=== PATIENT | female | born 1935 | race Caucasian/White ===

== ENCOUNTER 2017-03-04 08:29 | Emergency (ER) | payer MEDICARE, MEDICAID ==
[~2017-03-04] VITALS: Ht 160 cm; Wt 65.5 kg
[~2017-03-04 08:29] MED LIST changes: -DILT30TA PO; -DULE100A INH; -MULTTAB67 PO; -PLAV75TA29 PO; -PREV30CA11 PO
[2017-03-04 08:34] VITALS: BP 137/67; PULSE 80; RESP 16; TEMP 98.4; O2SAT 94
[2017-03-04] MEDS ORDERED: DILT30TA PO (08:40)
[2017-03-04] MEDS ORDERED: PREV30CA11 PO (08:40)
[2017-03-04] MEDS ORDERED: MULTTAB67 PO (08:40)
[2017-03-04] MEDS ORDERED: DULE100A INH (08:40)
[2017-03-04] MEDS ORDERED: VENTAER INH (08:40)
[2017-03-04] MEDS ORDERED: PLAV75TA29 PO (08:40)
[2017-03-04 08:43] VITALS: O2SAT 96
--- NOTE | 2017-03-04 08:43 | PD ---
HPI Chief Complaint: Syncope/Near-Syncope Time Seen by Provider: 08:32 Travel History International Travel<30 days: No Contact w/Intl Traveler<30days: No Traveled to known affect area: No History of Present Illness HPI The patient is a 81-year-old female who presents emergency department after syncopal episode. The patient states she was have a pulmonary function test performed earlier today, received Ventolin, and then felt lightheaded, dizzy, felt like she is going to pass out. The patient does believe she had a syncopal episode with mild nausea, vomiting, or symptoms significantly improved. The patient is now asymptomatic. The patient does have a history of syncope, states approximately one year ago she underwent cardiac evaluation with echocardiogram and a loop recorder. The patient's loop recorder when off one time and she was noted to have a tachyarrhythmia, was evaluated by her learning and development consultant, Dr. Gutierrez. The patient states she had no chest pain or palpitations earlier today, is currently asymptomatic. The patient also states in October and November she was evaluated for near syncopal symptoms and chest pain, underwent a nuclear medicine myocardial perfusion scan and was told that she has "the heart of a 21-year-old ". The patient is followed by her primary physician, Dr. Jonny Ghotra, her learning and development consultant, Dr. Gutierrez, and her chucking and sawing machine operator, Dr. Fuentes. The patient denies any current chest pain, shortness of breath, states her nausea/vomiting has resolved. PFSH Past Medical History Heart Rhythm Problems: Yes (TACH) Cancer: No Cardiovascular Problems: Yes Cerebrovascular Accident: Yes (10/2016) Diabetes: No Diminished Hearing: No GERD: Yes Hepatitis: No Hiatal Hernia: No Medical other: Yes (GERD) Respiratory: Yes (ASTHMA) Thyroid Disease: No Triglycerides - High: Yes Tetanus Vaccination: > 5 Years Influenza Vaccination: Yes ?: Not Past Surgical History Endocrine Surgery: Yes (PARATHYROID SURGERY) Eye Surgery: Yes (LEFT CATARACT SURGERY) Gynecologic Surgery: Yes (SANDHYA1983) Hysterectomy: Yes Oral Surgery: Yes (SINUS SURGERY) Pacemaker: No Other Surgery: Yes Social History Alcohol Use: No Tobacco Use: No Substance Use: No Allergies-Medications (Allergen,Severity, Reaction): Coded Allergies: Augmentin (Unverified Allergy, Severe, 03/04/17) Cipro (Unverified Allergy, Severe, 03/04/17) Uncoded Allergies: STATIN (Allergy, Severe, 03/05/12) Reported Meds & Prescriptions Reported Meds & Active Scripts Active Reported Dulera 120 Act Inh (Mometasone-Formoterol 120 Act Inh) 100-5 Mcg/Act Inh 2 Puff INH BID Multiple Vitamin 1 Tab 1 Tab PO DAILY Prevacid (Lansoprazole) 30 Mg Capdr 30 Mg PO HS Plavix (Clopidogrel Bisulfate) 75 Mg Tab 75 Mg PO DAILY Diltiazem (Diltiazem HCl) 30 Mg Tab Unknown Dose PO DIRECTED Ventolin Hfa 18 GM Inh (Albuterol Sulfate) 90 Mcg/Act Aer 1 Puff INH Q4H PRN Review of Systems Except as stated in HPI: all other systems reviewed are Neg General / Constitutional: Positive: Chills, No: Fever HENT: Positive: Lightheadedness Cardiovascular: Positive: Diaphoresis, Syncope, No: Chest Pain or Discomfort, Palpitations, Irregular Rhythm, Tachycardia Respiratory: No: Shortness of Breath Gastrointestinal: Positive: Nausea, Vomiting Neurologic: Positive: Dizziness, Syncope, No: Focal Abnormalities, Headache Physical Exam Narrative GENERAL: Awake, alert, very pleasant 81-year-old female who appears her stated age and is in no acute respiratory distress. SKIN: Focused skin assessment warm/dry. HEAD: Atraumatic. Normocephalic. EYES: Pupils equal and round. No scleral icterus. No injection or drainage. ENT: No nasal bleeding or discharge. Mucous membranes pink and moist. NECK: Trachea midline. No JVD. CARDIOVASCULAR: Regular rate and rhythm. No murmur appreciated. Heart rate in the 80s. RESPIRATORY: No accessory muscle use. Clear to auscultation. Breath sounds equal bilaterally. No wheezing noted. GASTROINTESTINAL: Abdomen soft, non-tender, nondistended. No rebound tenderness. MUSCULOSKELETAL: No obvious deformities. No clubbing. No cyanosis. No edema. NEUROLOGICAL: Awake and alert. No obvious cranial nerve deficits. Motor grossly within normal limits. Normal speech. PSYCHIATRIC: Appropriate mood and affect; insight and judgment normal. Data Data Last Documented VS Vital Signs Date Time Temp Pulse Resp B/P Pulse Ox O2 Delivery O2 Flow Rate FiO2 03/04/17 09:46 79 16 118/57 100 Room Air 03/04/17 08:53 2 03/04/17 08:34 98.4 Orders Complete Blood Count With Diff (03/04/17 08:38) Comprehensive Metabolic Panel (03/04/17 08:38) Magnesium (Mg) (03/04/17 08:38) Ecg Monitoring (03/04/17 08:38) Iv Access Insert/Monitor (03/04/17 08:38) Oximetry (03/04/17 08:38) Sodium Chloride 0.9% Flush (Ns Flush) (03/04/17 08:45) Orthostatic Vital Signs (03/04/17 08:38) Sodium Chlorid 0.9% 500 Ml Inj (Ns 500 M (03/04/17 08:45) Electrocardiogram (03/04/17 08:30) Labs Laboratory Tests Test 03/04/17 08:40 White Blood Count 23.5 TH/MM3 Red Blood Count 4.32 MIL/MM3 Hemoglobin 11.9 GM/DL Hematocrit 35.7 % Mean Corpuscular Volume 82.6 FL Mean Corpuscular Hemoglobin 27.5 PG Mean Corpuscular Hemoglobin 33.3 % Concent Red Cell Distribution Width 17.1 % Platelet Count 481 TH/MM3 Mean Platelet Volume 8.3 FL CBC Comment AUTO DIFF Differential Total Cells 100 Counted Neutrophils % (Manual) 58 % Lymphocytes % 30 % Monocytes % 9 % Eosinophils % 2 % Basophils % 1 % Neutrophils # (Manual) 13.6 TH/MM3 Differential Comment FINAL DIFF MANUAL Platelet Estimate HIGH Platelet Morphology Comment NORMAL Red Cell Morphology Comment NORMAL Sodium Level 142 MEQ/L Potassium Level 3.9 MEQ/L Chloride Level 104 MEQ/L Carbon Dioxide Level 29.1 MEQ/L Anion Gap 9 MEQ/L Blood Urea Nitrogen 22 MG/DL Creatinine 0.66 MG/DL Estimat Glomerular Filtration 86 ML/MIN Rate Random Glucose 125 MG/DL Calcium Level 9.2 MG/DL Magnesium Level 1.9 MG/DL Total Bilirubin 0.3 MG/DL Aspartate Amino Transf 23 U/L (AST/SGOT) Alanine Aminotransferase 34 U/L (ALT/SGPT) Alkaline Phosphatase 93 U/L Total Protein 7.3 GM/DL Albumin 3.4 GM/DL MDM Medical Decision Making Medical Screen Exam Complete: Yes Emergency Medical Condition: Yes Medical Record Reviewed: Yes Interpretation(s) EKG reveals normal sinus rhythm with a rate of 77. LVH by criteria. Laboratory Tests Test 03/04/17 08:40 White Blood Count 23.5 TH/MM3 Red Blood Count 4.32 MIL/MM3 Hemoglobin 11.9 GM/DL Hematocrit 35.7 % Mean Corpuscular Volume 82.6 FL Mean Corpuscular Hemoglobin 27.5 PG Mean Corpuscular Hemoglobin 33.3 % Concent Red Cell Distribution Width 17.1 % Platelet Count 481 TH/MM3 Mean Platelet Volume 8.3 FL CBC Comment AUTO DIFF Sodium Level 142 MEQ/L Potassium Level 3.9 MEQ/L Chloride Level 104 MEQ/L Carbon Dioxide Level 29.1 MEQ/L Anion Gap 9 MEQ/L Blood Urea Nitrogen 22 MG/DL Creatinine 0.66 MG/DL Estimat Glomerular Filtration 86 ML/MIN Rate Random Glucose 125 MG/DL Calcium Level 9.2 MG/DL Magnesium Level 1.9 MG/DL Total Bilirubin 0.3 MG/DL Aspartate Amino Transf 23 U/L (AST/SGOT) Alanine Aminotransferase 34 U/L (ALT/SGPT) Alkaline Phosphatase 93 U/L Total Protein 7.3 GM/DL Albumin 3.4 GM/DL Differential Diagnosis Differential diagnoses includes syncope, near-syncope, medication side effect, vasovagal syncope, cardiogenic syncope, arrhythmia, dehydration, orthostatic hypotension. Narrative Course IV was established, labs were drawn and sent, and the patient was placed on cardiac telemetry monitoring and continuous pulse oximetry monitoring. EKG was ordered and interpreted. The patient states she had a workup for syncope one year ago which included an echocardiogram and a Holter monitor. She then underwent evaluation for chest pain and had a nuclear medicine myocardial perfusion scan which was unremarkable. The patient has been followed by her learning and development consultant, she is not asymptomatic. Orthostatic vital signs were obtained and the patient was administered 500 cc normal saline bolus. The patient is currently nonfocal on exam, alert and oriented 4, no evidence of trauma to the head, I do not believe CT the brain is warranted. The patient's white count is elevated 23.5, platelets are elevated above 450, BUN is elevated at 22, creatinine 0.66, this may be a combination of marginal incision from syncope and mild dehydration. Orthostatic vital signs are unremarkable. The patient's cardiac telemetry monitoring revealed a normal sinus rhythm with no evidence of arrhythmia or ectopy. The patient was reevaluated, her symptoms have significantly improved. The patient has an appointment tomorrow with her primary physician, Dr. Lord. She'll be discharged home with family, will be provided a copy of her labs, will need repeat laboratory evaluation to ensure white count resolves. Diagnosis Primary Impression: Syncope Qualified Code: [id number] - Syncope, unspecified syncope type Patient Instructions: General Instructions Additional Instructions: Please provide the patient copy of her labs at discharge. Follow-up with your primary physician, Dr. Lemon tomorrow as scheduled. Return if symptoms worsen or progress. Med/Other Pt SpecificInfo: No Change to Meds Disposition: 01 DISCHARGE HOME Condition: Stable Robe Topete MD Mar 04, 2017 08:43
[2017-03-04] MEDS ORDERED: SODIUM CHLORIDE 0.9% FLUSH 10 ML FLUSH IVF PRN (08:45)
[2017-03-04] MEDS ORDERED: SODIUM CHLORID 0.9% 500 ML INJ 500 ML IV ONE (08:45)
[2017-03-04 08:52] VITALS: BP_SYST 119; BP_SYST 129; BP_SYST 144; BP_DIAS 59; BP_DIAS 62; RESP 16
[2017-03-04 08:55] LABS: CHLORIDE 104 MEQ/L (98-107); HEMATOCRIT 35.7 % (35.0-46.0); MEAN CELL VOLUME 82.6 FL (80.0-100.0); MEAN CORPUSCULAR HEMOGLOBIN 27.5 PG (27.0-34.0); MEAN CORPUSCULAR HGB CONC 33.3 % (32.0-36.0); PLATELET COUNT 481 TH/MM3 (150-450); POTASSIUM 3.9 MEQ/L (3.5-5.1); RED BLOOD COUNT 4.32 MIL/MM3 (4.00-5.30); RED CELL DISTRIBUTION WIDTH 17.1 % (11.6-17.2); SODIUM (NA) 142 MEQ/L (136-145); WHITE BLOOD COUNT 23.5 TH/MM3 (4.0-11.0)
[2017-03-04 08:59] LABS: ANION GAP 9 MEQ/L (5-15); BICARBONATE 29.1 MEQ/L (21.0-32.0); BLOOD UREA NITROGEN 22 MG/DL (7-18); MAGNESIUM 1.9 MG/DL (1.5-2.5)
[2017-03-04 09:00] LABS: HEMO FLAGS AUTO DIFF
[2017-03-04 09:02] LABS: ALT (GPT) 34 U/L (10-53); AST (GOT) 23 U/L (15-37); GLOMERULAR FILTRATION RATE 86 ML/MIN (>89)
[2017-03-04 09:03] LABS: TOTAL BILIRUBIN ADULT 0.3 MG/DL (0.2-1.0)
[2017-03-04 09:05] LABS: ALKALINE PHOSPHATASE 93 U/L (45-117)
[2017-03-04 09:17] LABS: BASOPHILS 1 % (0-2); EOSINOPHILS 2 % (0-4); NEUTROPHIL # MANUAL DIFF 13.6 TH/MM3 (1.8-7.7); PLATELET ESTIMATE SMEAR HIGH (NORMAL); PLATELET MORPHOLOGY NORMAL (NORMAL); POLYS (SEG NEUTROPHILS) 58 % (16-70); SCAN/DIFF FINAL DIFF MANUAL; WBC DIFF SAMPLE 100
[2017-03-04 09:46] VITALS: BP 118/57; PULSE 79; RESP 16; O2SAT 100
--- NOTE | 2017-03-05 09:55 | EKG ---
Date Performed: 03/04/2017 Time Performed: 08:30:15 PTAGE: 81 years EKG: Sinus rhythm POSSIBLE RIGHT VENTRICULAR CONDUCTION DELAY VOLTAGE CRITERIA FOR LVH ABNORMAL ECG Compared to prior tracing no significant change PREVIOUS TRACING : 02/07/2000 09.22 DOCTOR: Abraham Cash Interpretating Date/Time 03/05/2017 09:50:19
== END 2017-03-04 10:33 | disposition home or self-care (01) ==
LOC: PHED 08:29
DX: R55 Syncope and collapse (principal); D72.829 Elevated white blood cell count, unspecified; R94.31 Abnormal electrocardiogram [ECG] [EKG]; E78.1 Pure hyperglyceridemia; Z86.79 Personal history of other diseases of the circulatory system; Z87.19 Personal history of other diseases of the digestive system; Z87.09 Personal history of other diseases of the respiratory system
CPT/HCPCS: 80053; 83735; 85007; 85027; 93005; 96360; 99284; J7040

== ENCOUNTER → 2017-03-04 | Outpatient (CLI) | payer MEDICARE, MEDICAID ==
[~2017-03-04] MED LIST: CLOP75 PO; DILT30TA PO; DULE100A INH; FISH1000 PO; MULTTAB67 PO; PLAV75TA29 PO; PREV30CA11 PO; PREV30CA36 PO; SYMB80AE INH; TAB-TAB PO; VENTAER INH; VITA20003 OR; ZAFI1TAB2 PO
[2017-03-04 07:51] LABS: BLOOD GAS BASE EXCESS 1.4 mmol/L (-2-2); BLOOD GAS CARBOXYHEMOGLOBIN 1.6 % (0-4); BLOOD GAS HCO3 25 mmol/L (22-26); BLOOD GAS METHEMOGLOBIN 1.2 % (0-2); BLOOD GAS O2 HGB SATURATION 95 % (90-100); BLOOD GAS OXYGEN CONTENT 15.5 Vol % (12.0-20.0); BLOOD GAS PCO2 34 mmHG (38-42); BLOOD GAS PO2 88 mmHG (61-120); BLOOD GAS TOTAL HGB 11.5 G/DL (12.0-16.0); CRITICAL VALUE NO; DRAW SITE LT BRACHIAL; OXYGEN DEVICE RA; TEMP CORR TO 98.6
[2017-03-04 07:52] LABS: NUMBER OF ARTERIAL PUNCTURES 1; STAT NO; ULNAR PULSE Y
--- NOTE | 2017-03-08 09:48 | RSPPFT ---
DATE OF PROCEDURE: 03/04/17 COMMENTS: Spirometry with FVC of 2.2 at 92% of predicted, FEV1 of 1.3 at 73%, FEV1/FVC ratio is decreased. Flow is decreased at FEF 25, FEF 50, FEF 75 and FEF 25-75. Diffusion capacity is decreased. Flow volume loop indicates an obstructive pattern. Room air arterial blood gases show pH of 7.4, PCO2 of 34, PO2 of 80, BiCarb of 25 and O2 Saturation at 95%. IMPRESSION: 1. Moderately severe obstructive lung disease. 2. Post-bronchodilator study was not performed. 3. Lung volumes were not performed. 4. Diffusion capacity is normal. 5. Blood gases show normal oxygenation on room air.
== END ==
LOC: PHRSP 07:29
PROVIDERS: ATTEND Specialist
DX: J45.909 Unspecified asthma, uncomplicated (principal)
CPT/HCPCS: 36600; 82805; 94010; 94729